=== PATIENT | male | born 1970 | race Caucasian/White ===

== ENCOUNTER 2017-12-04 04:35 | Emergency (ER) | payer SELFPAY ==
[2017-12-04 04:41] VITALS: BMI 28.7
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
[2017-12-04 09:52] VITALS: O2SAT 99
[2017-12-04 12:38] VITALS: BP 126/70; PULSE 80; RESP 18; TEMP 98
== END 2017-12-04 12:40 | disposition home or self-care (01) ==
LOC: ED 04:35
DX: F10.129 Alcohol abuse with intoxication, unspecified (principal)